=== PATIENT | female | born 1975 | race Caucasian/White ===

== ENCOUNTER → 2019-09-29 15:06 | Outpatient (CLI) | payer OTHER, SELFPAY ==
--- NOTE | ~2019-09-29 | US_ITS ---
US thyroid INDICATION: Nontoxic multinodular goiter. Previous benign thyroid biopsy. TECHNIQUE: Real-time sonographic images of the thyroid gland were obtained. COMPARISON: Comparison to multiple prior studies sequentially, with oldest reviewed study dated 05/24. FINDINGS: The right thyroid lobe measures 7.6 x 2.9 x 2.9 cm. The left thyroid lobe measures 7 x 2.1 x 2.2 cm. Her multiple bilateral thyroid nodules which are not significantly changed from prior exam ination, largest measuring 3.9 x 2.9 x 3.7 cm in the right lobe inferiorly and largest on the left me asures 1.6 x 1.1 x 1.1 cm medially. IMPRESSION: 1. Stable multinodular goiter without significant change. Previously reported benign thyroid biopsie s. Reviewed, dictated and finalized at location A. ERNITY ADVISER IMPRESSION: 1. Stable multinodular goiter without significant change. Previously reported benign thyroid biopsies.
== END ==
PROVIDERS: PCP Family Medicine; Visit Provider Family Medicine
DX: E04.2 Nontoxic multinodular goiter (principal)
CPT/HCPCS: 76536

== ENCOUNTER 2022-03-27 12:55 | Outpatient (CLI) | payer OTHER, SELFPAY ==
--- NOTE | ~2022-03-27 | XR_ITS ---
EXAMINATION: XR lg joint inject/asp w image DATE: 03/27/2022 13:30 INDICATION: Unilateral primary osteoarthritis of the right hip presenting with right hip pain. TECHNIQUE: A time-out was performed to verify the patient's name, date of , and procedure to b e performed. The procedure including the risks, benefits, and alternatives was discussed with the pat ient. Risks discussed included bleeding and infection. The patient understood the risks and agreed to proceed. The skin overlying the right hip joint was prepped and draped in usual sterile fashion. A nesthetic was administered with 1% lidocaine subcutaneously. A 22 G needle was advanced under fluoro scopic guidance into the joint. Injection of a small amount of room air confirmed intra-articular po sition of the needle. Subsequently, injectate consisting of 7 mm a 5:2 mixture of 1% lidocaine: 10 m g/mL Kenalog for a total dosage of 20 mg Kenalog was instilled. The needle was removed and the entry site was cleaned and dressed. There were no immediate complications. Fluoroscopy exposure time was 0 .2 minutes. The total number of images was 3. FINDINGS: Real-time fluoroscopy demonstrates the needle and gas in the right hip joint. Patient's devendra n prior to procedure:7/10. Patient's pain following the procedure: 0/10. IMPRESSION: 1. Successful right hip joint injection of local anesthetic and steroid with decrease in the patient' s presenting pain. Reviewed, dictated and finalized at location A. IMPRESSION: 1. Successful right hip joint injection of local anesthetic and steroid with de crease in the patient's presenting pain.
== END 2022-03-27 12:56 | disposition home or self-care (01) ==
PROVIDERS: PCP Family Medicine; Visit Provider Nurse Practitioner
DX: M16.11 Unilateral primary osteoarthritis, right hip (principal)
CPT/HCPCS: 20610; 77002; J3301; Q9966

== ENCOUNTER 2022-03-29 08:07 | Outpatient (CLI) | payer OTHER, SELFPAY ==
--- NOTE | ~2022-03-29 | MM_ITS ---
EXAMINATION: MM screening noreen BI w reid HISTORY: Screening mammogram TECHNIQUE: Craniocaudal and mediolateral oblique 3-D tomosynthesis images were obtained and synthetic 2-D images were generated. CAD analysis was submitted and interpreted. COMPARISON: 10/30/2017, bilateral screening mammogram examinations BREAST PARENCHYMAL COMPOSITION: The breasts are almost entirely fatty. FINDINGS: There is no evidence of suspicious mass, calcification, or architectural distortion to sugg est malignancy in either breast. There has been no suspicious interval change. IMPRESSION: 1. No mammographic evidence of malignancy. 2. Recommend routine screening mammography in one year. BI-RADS Category 1: Negative Reviewed, dictated and finalized at location B.
== END 2022-03-29 08:08 | disposition home or self-care (01) ==
LOC: ANHIMG 08:09
PROVIDERS: PCP Family Medicine; Visit Provider Family Medicine
DX: Z12.31 Encounter for screening mammogram for malignant neoplasm of breast (principal)
CPT/HCPCS: 77063; 77067

== ENCOUNTER 2022-04-12 10:14 | Outpatient (CLI) | payer OTHER, SELFPAY ==
--- NOTE | ~2022-04-12 | US_ITS ---
EXAMINATION: US thyroid DATE: 04/12/2022 11:00 INDICATION: Nontoxic multinodular goiter. TECHNIQUE: Multiple ultrasound images of the thyroid were obtained. COMPARISON: Ultrasound 09/29/2019, 05/21/2013, 05/20/16, 06/03/17 FINDINGS: The right thyroid lobe measures 7.9 x 3.1 x 3.7 cm. The left thyroid lobe measures 5.9 x 2.0 x 2.2 c m. In the right thyroid lobe, there is a 4.4 cm predominantly solid, hypoechoic, wider than tall nod ule with lobulated margin without echogenic foci (TI-RADS TR4). In the left thyroid lobe, there is a 1.9 cm predominantly solid, hypoechoic, wider than tall nodule with lobulated margin without echogeni c foci (TR4). IMPRESSION: 1. Thyroid nodules, stable from 06/03/2017, likely benign. Reviewed, dictated and finalized at location A.
== END 2022-04-12 10:15 | disposition home or self-care (01) ==
PROVIDERS: PCP Family Medicine; Visit Provider Family Medicine
DX: E04.2 Nontoxic multinodular goiter (principal)
CPT/HCPCS: 76536

== ENCOUNTER 2022-05-23 15:15 | Outpatient (RCR) | payer OTHER, SELFPAY ==
--- NOTE | 2022-05-09 15:19 | PTOPEVAL1 ---
Evaluation Information Assessment Status Evaluation Diagnosis R sided pain (knee and hip) Onset ~2 years Subjective Information Pt states her R knee is bone on bone. She reports she has had received a cortisone injection in the knee and hip and it did not last long. She states she is not sure why she is at therapy. She reports 2 separate pains, a bone on bone grinding pain, and a sharp pain from her low back. She states she has a bulging disc on her R side. She states her pain has increased in the last 6-8 months. She reports 0/10 pain at rest, but 6/10 pain when standing. Reported Pain Level Pain Score 0: Self Report Assessment PT Clinical Summary Patricia presents to therapy today for her initial evaluation with a diagnosis of R hip and knee pain, possibly of low back origin. Today she reports pain on the lateral aspect of her knee that is worsened with knee flexion and hip adduction. She is very tender and has gritty tissue at the distal insertion of the iliotibial band. She demonstrates tightness in her R piriformis, hip flexors, and ITB. This tightness and tenderness will benefit from soft tissue mobilization, manual therapy, and stretching. She also demonstrates an increased lumbar lordosis for which she will benefit for core strengthening exercises. Plan of Care Interventions Manual Therapy,Neuro Re-education,Prosthetic Training,Therapeutic Activities PT Services Indicated Yes Treatment Frequency and 2x/wk for 4 wks Duration These treatments will address the objective and functional deficits as defined above. The patient will be advanced safely and appropriately in order for the patient to progress towards his/her prior level of function. Additional exercises will be introduced and as well as a comprehensive home exercise program upon discharge, if needed, ?to ensure carryover of functional gains achieved in the clinic. This treatment plan has been reviewed and agreement upon by the patient.
--- NOTE | 2022-05-16 10:50 | PCPTNOTE ---
Patient did not show up for scheduled appointment this date. Called and spoke to patient and she stated her daughter is sick so she would not be able to make her appointment.
--- NOTE | 2022-06-04 11:27 | PCPTNOTE ---
Called and left voicemail for patient as she does not have any other treatment scheduled.
--- NOTE | 2022-06-11 14:22 | PTOPDC ---
Assessment and note entered by Shelton Rutledge, PT, DPT Evaluation Information Assessment Status Discharge - Pt Not Presen Diagnosis R sided pain (knee and hip) Onset ~2 years Subjective Information Called and left voicemail with patient last week as she did not have any other appointments scheduled. Left instructions for her to follow up with the clinic within the week if she needs to continue therapy, she has not called. Assessment PT Clinical Summary Patricia completed 3 visits of skilled therapy from 05/09/22 to 05/23/22. She will be discharged at this time. If she is to return at a later date, she will need a new order.
== END 2022-06-12 12:13 | disposition home or self-care (01) ==
LOC: ANHPT 15:15
PROVIDERS: PCP Family Medicine; Referring Provider Nurse Practitioner; Visit Provider Nurse Practitioner
DX: M16.11 Unilateral primary osteoarthritis, right hip (principal); M25.562 Pain in left knee
CPT/HCPCS: 97110; 97140; 97161; 97530; 99199

== ENCOUNTER 2022-12-26 14:57 | Outpatient (CLI) | payer OTHER, SELFPAY ==
--- NOTE | ~2022-12-26 | US_ITS ---
EXAMINATION: US soft tissue head and neck DATE: 12/26/2022 15:37 INDICATION: 2 lumps on the right side of the neck and head. TECHNIQUE: Multiple grayscale and Doppler ultrasound images of the head and neck were obtained. COMPARISON: None FINDINGS: There are normal lymph nodes in the patient's area of concern in right head and neck. IMPRESSION: 1. No abnormal mass or lymphadenopathy in the patient's area of concern. Reviewed, dictated and finalized at location E.
== END 2022-12-26 14:58 | disposition home or self-care (01) ==
PROVIDERS: PCP Family Medicine; Visit Provider Nurse Practitioner Gerontology
DX: R22.1 Localized swelling, mass and lump, neck (principal)
CPT/HCPCS: 76536

== ENCOUNTER 2024-08-05 00:56 | Day surgery (SDC) | payer OTHER, SELFPAY ==
[2024-07-15 13:35] VITALS: BMI 37.3
--- NOTE | 2024-08-04 16:22 | P.PNAN_ITS ---
Anes - Eval Pre Procedure Procedure: Operation Date: 08/05/24 11:30 Proposed Procedures p Screening Colonoscopy - Derek Troy DO Date/Time: 08/04/24 16:22 Pre Op Diagnosis: Screening for malignant neoplasm of colon Patient Data Age: 49 Gender: F Height: 1.83 m Weight: 125 kg Allergies Allergy/AdvReac Type Severity Reaction Status Date / Time metformin AdvReac Intermediate diarrhea Verified 07/15/24 13:19 Home Medications Medication Instructions Recorded Confirmed Type rosuvastatin 10 mg tablet See Rx Instructions .Route 12/16/23 07/15/24 Rx .COMPLEX #90 tabs diclofenac sodium 75 mg 75 mg PO BID #60 tabs 06/04/24 07/15/24 Rx tablet,delayed release lisinopril 10 See Rx Instructions .Route 06/04/24 07/15/24 Rx mg-hydrochlorothiazide 12.5 mg .COMPLEX #90 tabs tablet phentermine 37.5 mg tablet 37.5 mg PO DAILY #30 tabs 06/04/24 07/15/24 Rx topiramate 25 mg tablet (Topamax) 25 mg PO TIDWMEAL #270 tabs 07/14/24 07/15/24 Rx Patient hx anesthesia problems: none Family hx anesthesia problems: none Results Review: All pre-operative results and documents have been reviewed as part of the pre- operative evaluation. [facility] Past Medical History Medical History (Updated 08/04/24 @ 16:22 by Carina Mcadams CRNA) Benign reactive hypertension Multinodular goiter Strain of muscle, fascia and tendon of lower back, initial encounter TIA (transient ischemic attack) Surgical History Surgical History History of knee surgery Family History Family History Father Family history of osteoporosis Malignant neoplasm of prostate, Onset Age: 50 Heart disease passed at age 78 from AMI Mother Hypertension Family history of elevated blood lipids Family history of thyroid disease Other Diabetes mellitus Social History Social History Social History: Smoking status: Never smoker Second hand tobacco smoke exposure: No Alcohol intake: current Drinks per week: 3 Substance use: never Substance use type: does not use Do You Feel Safe in your Home?: Yes Lack of Transportation: No Lack of Food: Never True Current Housing: I Have Housing Concerned About Future Housing: No Difficulty Paying Gas/Electric Bills: No Difficulty Paying for Meds: No Currently Unemployed: No Education: Don't Know Difficulty w/ Childcare or Family Care: No Living arrangements: with family Occupation/Education: occupation 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
[2024-08-05 11:07] VITALS: BP 146/92; PULSE 80; RESP 18; TEMP 36.6; O2SAT 100
[2024-08-05 11:14] LABS: BEDSIDEPREGUCG Negative (Negative)
[2024-08-05] MEDS: LACTATED RINGERS 1,000 ML 150 ML IV CONT (11:15)
--- NOTE | 2024-08-05 11:49 | PM.IMHP ---
H&P: HPI History of Present Illness Date/Time: 08/05/24 11:49 Chief Complaint: Screening for colorectal cancer Narrative: this is 49 year woman who presents for colonoscopy. Has never had a colonoscopy before. She denies any hematochezia or melena. She denies any first-degree relatives with colon cancer. Review of Systems Review of Systems: All systems reviewed & are unremarkable except as noted in HPI and below Constitutional: Constitutional: Denies chills, Denies fever(s), Denies headache(s) and Denies weight loss Eyes: Eyes: Denies change in vision ENT: Denies dizziness, Denies headache(s), Denies neck mass and Denies throat swelling Cardiovascular: Cardiovascular: Denies chest pain, Denies lightheadedness and Denies dyspnea Respiratory: Respiratory: Denies cough, Denies dyspnea and Denies wheezing Gastrointestinal: Gastrointestinal: Denies abdominal pain, Denies change in bowel habits, Denies nausea and Denies vomiting Genitourinary: Genitourinary: Denies hematuria and Denies dysuria Musculoskeletal: Musculoskeletal: Reports as per HPI Integumentary/Breasts: Skin/Breast: Reports as per HPI Neurologic: Denies dizziness and Denies headache(s) Allergic/Immunologic: Allergic/Immunologic: Denies throat swelling and Denies wheezing [facility] Past Medical History Medical History (Updated 08/04/24 @ 16:22 by Carina Mcadams CRNA) Benign reactive hypertension Multinodular goiter Strain of muscle, fascia and tendon of lower back, initial encounter TIA (transient ischemic attack) Surgical History Surgical History History of knee surgery Family History Family History Father Family history of osteoporosis Malignant neoplasm of prostate, Onset Age: 50 Heart disease passed at age 78 from AMI Mother Hypertension Family history of elevated blood lipids Family history of thyroid disease Other Diabetes mellitus Social History Social History Social History: Smoking status: Never smoker Second hand tobacco smoke exposure: No Alcohol intake: current Drinks per week: 3 Substance use: never Substance use type: does not use Do You Feel Safe in your Home?: Yes Lack of Transportation: No Lack of Food: Never True Current Housing: I Have Housing Concerned About Future Housing: No Difficulty Paying Gas/Electric Bills: No Difficulty Paying for Meds: No Currently Unemployed: No Education: Don't Know Difficulty w/ Childcare or Family Care: No Living arrangements: with family Occupation/Education: occupation 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 Gender identity (if verbalized by the patient): Female Sexual Orientation (if Verbalized by the Patient): Straight or Heterosexual Spiritual care concerns: No Meds Home Medications and Allergies Home Medications Medication Instructions Recorded Confirmed Type rosuvastatin 10 mg tablet See Rx Instructions .Route 12/16/23 07/15/24 Rx .COMPLEX #90 tabs diclofenac sodium 75 mg 75 mg PO BID #60 tabs 06/04/24 07/15/24 Rx tablet,delayed release lisinopril 10 See Rx Instructions .Route 06/04/24 07/15/24 Rx mg-hydrochlorothiazide 12.5 mg .COMPLEX #90 tabs tablet phentermine 37.5 mg tablet 37.5 mg PO DAILY #30 tabs 06/04/24 07/15/24 Rx topiramate 25 mg tablet (Topamax) 25 mg PO TIDWMEAL #270 tabs 07/14/24 07/15/24 Rx Allergies Allergy/AdvReac Type Severity Reaction Status Date / Time metformin AdvReac Intermediate diarrhea Verified 08/05/24 11:00 Vital Signs Vital Signs - 24 hr 08/05/24 11:07 Temperature 97.8 F Pulse Rate 80 Respiratory Rate 18 Blood Pressure 146/92 H Pulse Oximetry 100 Oxygen Delivery Room Air Exam Const: General: no acute distress and alert Orientation/consciousness: patient oriented x3 HENMT: Head: normocephalic and atraumatic Ears: hearing grossly normal bilaterally Face/Nose/Sinus: Normal nares present Mouth: Yes Normal oral and palatal mucosa present Eyes: Periorbital: periorbital findings normal Sclera: sclerae normal EOM: EOMs intact bilaterally Neck: Neck: normal visual inspection, no lymphadenopathy and trachea midline Chest: Chest palpation & inspection: normal inspection of the chest Resp: Effort & Inspection: normal respiratory effort Auscultation: clear to auscultation bilaterally Cardio: Jugular venous distension: no JVD Rate: regular rate Rhythm: regular rhythm Heart sounds: S1 normal heart sound present and S2 normal heart sound present Peripheral pulses: Peripheral pulses 2+ throughout GI: Inspection: normal to inspection GI Palp: Yes Soft to palpation, No Tenderness to palpation present (GI), No Guarding due to palpation present (GI) and No Rebound tenderness present Percussion: Yes normal to percussion Auscultation: normal bowel sounds : General: Yes no CVA tenderness Back/Spine/Pelvis: Back: no CVA tenderness Neuro: General: patient oriented x3, no focal motor deficits and CN's II-XI intact bilaterally Cognition (Neuro): normal cognition Speech: normal speech Motor exam (neuro): 5/5 motor strength present throughout Extrem: General: capillary refill normal and no clubbing, cyanosis or edema Assessment and Plan Assessment and plan (1) Colon cancer screening: Code(s): Z12.11 - Encounter for screening for malignant neoplasm of colon Status: Acute Assessment and Plan: I have recommended colonoscopy. I have discussed the procedure, risks, benefits, and alternatives. Questions were answered. Patient is agreeable to proceed.
--- NOTE | 2024-08-05 11:54 | P.PNAN_ITS ---
Anes - Eval Final PreProcedure Day of Procedure 08/05/24 11:54 Patient weight: morbidly obese Heart: regular rate and rhythm Lungs: normal air movement Airway: Mallampati scale class II Neurological: alert and oriented Last oral intake: >/= 8 hours ASA classification: III Emergent: no Anesthetic plan: proceed Anesthesia type and monitoring: general GIVS Results Review: All pre-operative results and documents have been reviewed as part of the pre- operative evaluation. Informed Consent: The patient's anesthetic plan and its attendant risks and benefits were discussed with the patient/family/POA. Questions were solicited and answers provided to the satisfaction of the patient/family/POA.
[2024-08-05 12:17] VITALS: BP 119/66; PULSE 74; RESP 20; O2SAT 98
[2024-08-05 12:27] VITALS: BP 105/70; PULSE 76; RESP 19; O2SAT 98
[2024-08-05 12:34] VITALS: BP 111/75; PULSE 74; RESP 21; O2SAT 99
== END 2024-08-05 12:49 | disposition home or self-care (01) ==
PROVIDERS: Anesthesiology; PCP Family Medicine; Visit Provider Surgery
PROC: 0DJD8ZZ Inspection of Lower Intestinal Tract, Via Natural or Artificial Opening Endoscopic (ICD-10-PCS; CPT 45378; principal; 2024-08-05 11:30)
DX: Z12.11 Encounter for screening for malignant neoplasm of colon (principal); K57.30 Diverticulosis of large intestine without perforation or abscess without bleeding; I10 Essential (primary) hypertension; Z86.73 Personal history of transient ischemic attack (TIA), and cerebral infarction without residual deficits; E66.01 Morbid (severe) obesity due to excess calories; Z68.38 Body mass index [BMI] 38.0-38.9, adult
CPT/HCPCS: 45378; J2003; J2704; J7120

== ENCOUNTER 2024-12-30 09:06 | Outpatient (CLI) | payer OTHER, SELFPAY ==
--- NOTE | 2024-12-30 09:14 | ECG_ITS ---
Test Date: 2024-12-30 09:27:43 Measurements Intervals Eldena Rate: 82 P: -7 IN: 124 QRS: 28 QRSD: 102 T: 55 QT: 354 QTc: 414 Interpretive Statements SINUS RHYTHM No previous ECG available for comparison Electronically Signed On 12-31-2024 18:57:49 CDT by Justo Flanagan
== END 2024-12-30 09:07 | disposition home or self-care (01) ==
LOC: ANHCARD 09:07
PROVIDERS: PCP Family Medicine; Visit Provider Orthopaedic Surgery
DX: G45.9 Transient cerebral ischemic attack, unspecified (principal)
CPT/HCPCS: 93005

== ENCOUNTER 2025-03-30 08:02 | Outpatient (CLI) | payer OTHER, SELFPAY ==
[2025-03-30 09:51] LABS: Hematocrit 38.9 % (37.0-47.0); Hemoglobin 13.2 g/dL (12.0-15.0); Immature Granulocyte Percent A 0.3 % (0-0.5); Lymphocytes Absolute Auto 2.46 K/mm3 (0.9-3.2); Mean Corpuscular HGB Conc 33.9 g/dl (32-36); Mean Corpuscular Hemoglobin 29.2 pg (26-34); Mean Corpuscular Volume 86.1 fl (80-100); Nucleated Red Blood Cells Absolute Auto 0.000 K/mm3 (0.0-0.012); Nucleated Red Blood Cells Perc 0.0 % (0.0-0.2); Platelet Count Result 260 k/mm3 (150-375); Red Blood Count 4.52 M/mm3 (4.2-5.4); White Blood Count 6.8 K/mm3 (4.5-10.0)
[2025-03-30 09:55] LABS: Albumin Level 4.4 g/dL (3.5-5.1)
[2025-03-30 10:26] LABS: Anion Gap 5 mmol/L (4-12); Blood Urea Nitrogen 12 mg/dL (7-17); Calcium 9.2 mg/dL (8.4-10.2); Carbon Dioxide 29 mmol/L (22-30); Chloride 101 mmol/L (98-107); Estimated Glomerular Filt Rate > 60; Glucose 97 mg/dL (65-110); Potassium 4.2 mmol/L (3.4-5.0); Sodium 135 mmol/L (137-145)
[2025-03-30 10:47] LABS: MRSA (PCR) NOT DETECTED (NOT DETECTE)
[2025-03-30 11:34] LABS: Hemoglobin A1C 5.0 % (<5.7)
== END 2025-03-30 08:03 | disposition home or self-care (01) ==
PROVIDERS: Anesthesiology; PCP Family Medicine; Visit Provider Orthopaedic Surgery
DX: Z01.818 Encounter for other preprocedural examination (principal); M16.11 Unilateral primary osteoarthritis, right hip; Z51.81 Encounter for therapeutic drug level monitoring
CPT/HCPCS: 36415; 80048; 80307; 82040; 83036; 85025; 87641

== ENCOUNTER 2025-04-26 00:19 | Day surgery (SDC) | payer OTHER, SELFPAY ==
[2025-03-30 08:12] VITALS: BMI 37.5
[2025-03-30 08:19] VITALS: BP 111/59; PULSE 80; RESP 16; TEMP 36.2; O2SAT 97
--- NOTE | 2025-03-30 08:29 | PC.NURSE ---
Report to the Outpatient Waiting Room, entrance under the green pavilion located off [facility], at time ___6:00AM____ on date __04/26/25 . Planned Procedure Time: ___7:30AM .? Time changes happen often and if your time is changed the preop area will call you the afternoon before. - You and your visitor will be asked to self-screen and do not enter if you have any COVID symptoms. Please call surgeon if you need to reschedule. - A mask is optional within the hospital at this time. Patients may have clear liquids (water, carbonated beverages, clear teas, apple juice) until 3 hours prior to surgery (4:30AM) with a maximum of 20 ounces. - No food from midnight until time of surgery and no smoking, or chewing tobacco (or any form of nicotine). No chewing gum, candy or mints. Take only the following medications with a SIP of water on the morning of surgery: ____NONE DO NOT STOP ANY OF YOUR OTHER PRESCRIPTION MEDICATIONS PRIOR TO SURGERY EXCEPT THE FOLLOWING Hold all vitamins and supplements for 3 days per anesthesiologist.-LAST DOSE 04/22/25. Medications to discontinue per physician ____HOLD DICLOFENAC (ALL NSAIDS) 7 DAYS PRE-OP PER DR ESPINAL Date to take last dose 04/18/25 Please no make-up, nail burmese, hairspray, perfume, deodorant, or body powder the day of surgery.? No jewelry (including any body piercings) or valuables the day of surgery, leave them at home.? Please take a shower or bath the night before, or the morning of, surgery with an antibacterial soap.? Wear comfortable, loose fitting clothing.? - Jewelry must be removed prior to entering the operating room.? Rings and piercings that are not removed may be cut off. - The hospital will not accept responsibility for valuables.? - Please leave all valuables, including medications, at home the day of surgery. If you are going home after surgery, a licensed road oiling truck driver must drive you home.? - NO public transportation without another adult if you receive anesthesia. - We recommend that an adult stay with you for 24 hours following discharge. - We also recommend that you do not drive, make important decision, drink alcoholic beverages, or take any drugs that were not prescribed by your health care provider for at least 24 hours after your discharge time. Follow any additional instructions given to you from your surgeon. Telephone instructions given to ____PATIENT and asked if any additional questions and then verbalized understanding. Patient advised to call surgeon office or pre surgery nurse liaison [phone] if any additional questions.
[2025-04-26] VITALS (11 sets, daily range): BP systolic 107–136; BP diastolic 60–91; PULSE 68–86; RESP 12–20; TEMP 35.9–36.6; O2SAT 96–100
--- NOTE | ~2025-04-26 | XR_ITS ---
EXAMINATION: XR hip RT min 2V DATE: 04/26/2025 10:54 INDICATION: Right total hip arthroplasty TECHNIQUE: AP portable view right hip FINDINGS: There is a right total hip arthroplasty in expected position. Subcutaneous gas with soft tissue swelling are consistent with recent surgery. IMPRESSION: 1. Recent right total hip arthroplasty. Reviewed, dictated and finalized at location O.
[2025-04-26 07:10] LABS: BEDSIDEPREGUCG Negative (Negative)
--- NOTE | 2025-04-26 07:12 | WPDHPUPDATE1 ---
History and Physical Update Update Date/Time: 04/26/25 07:12 History and Physical has been reviewed, including an updated exam of the patient. There are NO changes in the patient's condition. Risks, benefits, and alternatives have been discussed and questions answered. Patient agrees to proceed with procedure.
--- NOTE | 2025-04-26 07:26 | WPDANESEPPF ---
Anes - Initial Pre Proc Eval Procedure: Operation Date: 04/26/25 07:30 Proposed Procedures p Right Total Hip Arthroplasty - Kenneth Coyle MD Date/Time: 04/26/25 07:26 Surgeon: Kenneth Coyle MD Pre Op Diagnosis: primary oa right hip Patient Data Age: 50 Gender: F Height: 1.82 m Weight: 124 kg Last Vital Signs Temp 97.1 F L 04/26/25 07:00 Pulse 86 04/26/25 07:00 Resp 16 04/26/25 07:00 BP 115/91 H 04/26/25 07:00 Pulse Ox 98 04/26/25 07:00 O2 Del Method Room Air 04/26/25 07:00 Allergies Allergy/AdvReac Type Severity Reaction Status Date / Time metformin AdvReac Intermediate diarrhea Verified 04/26/25 07:09 Home Medications ?Medication ?Instructions ?Recorded ?Confirmed ?Type rosuvastatin 10 mg tablet See Rx Instructions .Route 10/18/24 04/26/25 Rx .COMPLEX #90 tabs diclofenac sodium 75 mg 75 mg PO BID PRN pain 03/30/25 04/26/25 History tablet,delayed release lisinopril 10 1 tablet PO QAM 03/30/25 04/26/25 History mg-hydrochlorothiazide 12.5 mg tablet multivitamin (Daily Multi-Vitamin 1 tablet PO 3XW 03/30/25 04/26/25 History tablet) Laboratory Tests 04/26/25 04/26/25 06:30 06:46 POC Urine HCG, Qual Negative (Negative) Blood Type Pending Antibody Screen Pending Patient hx anesthesia problems: none Family hx anesthesia problems: none Results Review: All pre-operative results and documents have been reviewed as part of the pre-operative evaluation. [facility] Past Medical History Medical History TIA (transient ischemic attack) Strain of muscle, fascia and tendon of lower back, initial encounter Benign reactive hypertension Multinodular goiter Surgical History Surgical History History of knee surgery Family History Family History Father Family history of osteoporosis Malignant neoplasm of prostate, Onset Age: 50 Heart disease passed at age 78 from AMI Mother Hypertension Family history of elevated blood lipids Family history of thyroid disease Other Diabetes mellitus Social History Social History Social History: Smoking packs per day: 0.25 Smoking cigarettes per day: 5.0 Years smoked: 4 Smoking pack-years: 1.00 Smoking status: Former smoker Tobacco type: cigarettes Second hand tobacco smoke exposure: No Smoking end date: 03/01/02 Alcohol intake: current Drinks per week: 3 Substance use: never Substance use type: does not use Do You Feel Safe in your Home?: Yes Lack of Transportation: No Lack of Food: Never True Current Housing: I Have Housing Concerned About Future Housing: No Difficulty Paying Gas/Electric Bills: No Difficulty Paying for Meds: No Currently Unemployed: No Education: Don't Know Difficulty w/ Childcare or Family Care: No Living arrangements: with family Additional living arrangements comments: HUSB & CHILD Occupation/Education: occupation 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 Gender identity (if verbalized by the patient): Female Sexual Orientation (if Verbalized by the Patient): Straight or Heterosexual Spiritual care concerns: No Anes - Eval Final PreProcedure Day of Procedure 04/26/25 07:26 Patient weight: obese Heart: regular rate and rhythm Lungs: clear to auscultation Airway: Mallampati scale class II Neurological: alert and oriented Last oral intake: >/= 8 hours ASA classification: III Emergent: no Anesthetic plan: proceed Anesthesia type and monitoring: general ETT and standard monitoring Results Review: All pre-operative results and documents have been reviewed as part of the pre-operative evaluation. Informed Consent: The patient's anesthetic plan and its attendant risks and benefits were discussed with the patient/family/POA. Questions were solicited and answers provided to the satisfaction of the patient/family/POA.
[2025-04-26] MEDS: ceFAZolin 3 GM/D5W 100 ML 100 ML IVPB (07:30)
[2025-04-26] MEDS: SODIUM CHLORIDE 0.9% IV 37.7 ML, MORPHINE SULFATE INJ (*CRX) 2 MG, ROPivacaine HCL 1% 2... INFILTRATE (08:00)
[2025-04-26] MEDS: TRANEXAMIC ACID 1,000 MG/10 ML AMPUL 1000 MG IV PUSH (09:10)
[2025-04-26] MEDS: KETOROLAC 15 MG/ML VIAL (*BKC) IV PUSH (09:12)
--- NOTE | 2025-04-26 09:52 | P.OP_ITS ---
Procedure Note - Detailed Date of Procedure 04/26/25 Pre-op Diagnosis Right hip degenerative arthritis. Post-op Diagnosis Same Procedure Performed Right Total Hip Arthroplasty Surgeon Kenneth Coyle MD Anesthesia General Findings Severe disease. Large stature. Excellent bone quality. Description of Procedure The patient was given preoperative antibiotics. A general anesthetic was administered. The patient was carefully placed in the lateral decubitus position on the PEG board. The shoulders and hips were carefully positioned for component and leg length positioning reference. The hip was prepped and draped in the usual sterile fashion. A longitudinal incision was created over the posterior aspect of the greater trochanter. Careful dissection was brought down through the deep fascia with electrocautery. A minimally invasive optimized posterior approach to the hip was performed. The short external rotators and capsule were taken down in an L-shaped capsulotomy. The tissue was tagged for later repair using number 2 high strength suture. The femoral neck was measured and taken in situ. The femoral head was removed. The acetabulum was carefully exposed. The inferior capsule was released. The labrum was resected. The acetabulum was sequentially reamed to the intended cup size. The cup was impacted into position with excellent press-fit. Typical anatomic landmarks, including the bony contact points as well as the inferior transverse acetabular ligament were used to confirm cup positioning with preoperative templating. Attention was turned to the femur, which was carefully exposed. The hip was reamed and then broached sequentially. Excellent press-fit was obtained with the broach. The hip was trialed. Measurements were utilized, including the lesser trochanter as well as the center of the femoral head and the tip of the trochanter, and excellent assessment of the offset and leg lengths were confirmed. The real component was impacted into position. Trialing confirmed appropriate leg length and offset with soft tissue balancing as well apparent feel of the leg, both at the knee and the heel. Soft tissues were assessed using the the iliotibial band. Reduction of the posterior capsule and external rotators were also used as a secondary assessment. The hip was copiously irrigated with pulsatile lavage periodically throughout the procedure. The real components were then assembled and reduced. The hip was stable throughout typical maneuvers, including extension, external rotation to 70 degrees, the position of sleep as well as flexion to 90 degrees with internal rotation past 35 degrees. The shake test confirmed stability without impingement. Osteophytes were removed as necessary. The short external rotators and capsule were repaired back to the posterior trochanter through drill holes. The deep fascia was repaired with running number 2 barbed suture, followed by 2-0 Stratafix suture and 3-0 Stratafix suture in the dermis. Steri-Strips were placed on the skin, followed by a sterile occlusive dressing. There were no complications. Meticulous hemostasis was maintained with the AquaMantys device. The patient was brought to the recovery room in stable condition. There were no complications. Implants The [place] [employer] hip stem, high offset size 4 , was utilized with excellent press-fit. The 54 mm Trident II acetabular component was impacted with excellent press-fit stability. Standard polyethylene liner the +5, 36 mm Biolox ceramic femoral head was utilized. Estimated Blood Loss 200 Drains No Packing No Pathology None sent Complications No immediate complications Condition Stable Disposition PACU [facility] Billing Surgery - Charge Forward: Surgery Billing
[2025-04-26] MEDS: LACTATED RINGERS 1,000 ML 30 ML IV CONT ×2 (09:55)
[2025-04-26] MEDS: fentaNYL CITRATE INJ (*CRX) 100 MCG/2 ML VIAL 25 MCG IV PUSH ×2 (10:05→10:20)
[2025-04-26] MEDS: ACETAMINOPHEN 325 MG TABLET 650 MG PO ×2 (12:45→17:26)
[2025-04-26] MEDS: HYDROCHLOROTHIAZIDE XX (12:53)
[2025-04-26] MEDS: LISINOPRIL XX (12:53)
[2025-04-26] MEDS: [UNRECOGNIZED DRUG - OTHER] XX (12:53)
[2025-04-26] MEDS: IBUPROFEN IV 800 MG/200 ML 800 MG/200 ML BAG 400 MG IVPB (13:59)
[2025-04-26] MEDS: ceFAZolin 2 GM in SODIUM CHLORIDE 0.9% IV 50 ML 100 ML IVPB ×2 (17:23→22:02)
[2025-04-26] MEDS: MELOXICAM 7.5 MG TABLET PO (17:25)
[2025-04-26] MEDS: ASPIRIN 81 MG ENTERIC TABLET PO (17:26)
[2025-04-26] MEDS: SENNA/DOCUSATE SODIUM TABLET 2 TAB PO (17:27)
[2025-04-26] MEDS: HYDROmorphone HCL INJ (*CRX) 1 MG/ML SYR IV PUSH (20:04)
[2025-04-27 01:01] VITALS: BP 113/70; PULSE 73; RESP 18; TEMP 36.8; O2SAT 98
[2025-04-27 05:07] VITALS: BP 118/75; PULSE 75; RESP 18; TEMP 37.3; O2SAT 98
[2025-04-27] MEDS: IBUPROFEN IV 800 MG/200 ML 800 MG/200 ML BAG 400 MG IVPB (05:40)
[2025-04-27] MEDS: ceFAZolin 2 GM in SODIUM CHLORIDE 0.9% IV 50 ML 100 ML IVPB (06:21)
[2025-04-27 06:47] LABS: Hematocrit 32.4 % (37.0-47.0); Hemoglobin 10.6 g/dL (12.0-15.0); Immature Granulocyte Percent A 0.4 % (0-0.5); Lymphocytes Absolute Auto 1.60 K/mm3 (0.9-3.2); Mean Corpuscular HGB Conc 32.7 g/dl (32-36); Mean Corpuscular Hemoglobin 29.7 pg (26-34); Mean Corpuscular Volume 90.8 fl (80-100); Nucleated Red Blood Cells Absolute Auto 0.000 K/mm3 (0.0-0.012); Nucleated Red Blood Cells Perc 0.0 % (0.0-0.2); Platelet Count Result 215 k/mm3 (150-375); Red Blood Count 3.57 M/mm3 (4.2-5.4); White Blood Count 9.6 K/mm3 (4.5-10.0)
[2025-04-27 07:04] LABS: Anion Gap 5 mmol/L (4-12); Blood Urea Nitrogen 14 mg/dL (7-17); Calcium 8.5 mg/dL (8.4-10.2); Carbon Dioxide 26 mmol/L (22-30); Chloride 102 mmol/L (98-107); Estimated CRCL calculation 109 ml/min; Estimated Glomerular Filt Rate > 60; Glucose 106 mg/dL (65-110); Potassium 4.3 mmol/L (3.4-5.0); Sodium 133 mmol/L (137-145)
--- NOTE | 2025-04-27 07:52 | WPDANESPN ---
Anes - Prog Note Post-Op Date/Time: 04/27/25 07:52 Cardiovascular status: normal Respiratory status: normal Airway patency: baseline Mental status: baseline Post-Op hydration status: normal Vital Signs: Last Vital Signs Temp 99.1 F 04/27/25 05:07 Pulse 75 04/27/25 05:07 Resp 18 04/27/25 05:07 BP 118/75 04/27/25 05:07 Pulse Ox 98 04/27/25 05:07 O2 Del Method Room Air 04/26/25 13:34 O2 Flow Rate 8 04/26/25 10:25 Pain Score (VAS): 0/10 I/O: Intake & Output 04/26/25 04/26/25 04/27/25 15:59 23:59 07:59 Intake Total 927 319 0727 Balance 232 177 6021 Laboratory Tests 04/27/25 05:32 04/27/25 05:32 04/26/25 04/27/25 06:46 05:32 WBC 9.6 RBC 3.57 L Hgb 10.6 L Hct 32.4 L MCV 90.8 MCH 29.7 MCHC 32.7 RDW 13.1 Plt Count 215 MPV 10.2 Immature Gran % (Auto) 0.4 Neut % (Auto) 75.1 H Lymph % (Auto) 16.6 L [place] % (Auto) 7.7 Eos % (Auto) 0.0 Baso % (Auto) 0.2 Lymph # (Auto) 1.60 [place] # (Auto) 0.7 H Eos # (Auto) 0.0 Baso # (Auto) 0.0 Abs Immat Gran (auto) 0.04 H Absolute Neuts (auto) 7.2 H Absolute Nucleated RBC 0.000 Nucleated RBC % 0.0 Sodium 133 L Potassium 4.3 Chloride 102 Carbon Dioxide 26 Anion Gap 5 BUN 14 Creatinine 0.79 Estim Creat Clear Calc 109 Estimated GFR > 60 Glucose 106 Calcium 8.5 Antibody Screen Negative Post-procedural complaints: none Patient Feedback: Patient satisfied with anesthetic care.
[2025-04-27 08:00] VITALS: BP 127/75; PULSE 81; RESP 18; TEMP 36.6; O2SAT 98
[2025-04-27] MEDS: ASPIRIN 81 MG ENTERIC TABLET PO (08:32)
[2025-04-27] MEDS: SENNA/DOCUSATE SODIUM TABLET 2 TAB PO (08:32)
[2025-04-27] MEDS: MELOXICAM 7.5 MG TABLET PO (08:32)
[2025-04-27] MEDS: ROSUVASTATIN 10 MG TABLET BY MOUTH (08:32)
[2025-04-27] MEDS: oxyCODONE/ACETAMINOPHEN (*CRX) 5-325 MG TABLET 1 TABLET PO (08:33)
== END 2025-04-27 11:10 | disposition home or self-care (01) ==
LOC: ANHSURGERY 09:59 → ANH3MEDSUR 11:27
PROVIDERS: PCP Family Medicine; Visit Provider Orthopaedic Surgery
PROC: (CPT 27130; principal; 2025-04-26 07:30)
DX: M16.11 Unilateral primary osteoarthritis, right hip (principal); I10 Essential (primary) hypertension; E66.9 Obesity, unspecified; Z68.37 Body mass index [BMI] 37.0-37.9, adult; Z98.890 Other specified postprocedural states; Z87.891 Personal history of nicotine dependence; Z86.73 Personal history of transient ischemic attack (TIA), and cerebral infarction without residual deficits; Z80.42 Family history of malignant neoplasm of prostate; Z82.49 Family history of ischemic heart disease and other diseases of the circulatory system
CPT/HCPCS: 27130; 36415; 73502; 80048; 85025; 86850; 86900; 86901; 97110; 97116; 97161; 97165; 97530; 97535; J0690; A9270; C1776; J0166; J1100; J1171; J1741; J1885; J2003; J2250; J2270; J2405; J2704; J2795; J3010; J7120